=== PATIENT | female | born 1970 | race Caucasian/White ===

== ENCOUNTER → 2024-03-08 11:33 | Outpatient (REF) | payer SELFPAY | LOC: HWRAD 11:33 | PROVIDERS: ATTENDING PHYSICIAN Internal Medicine Cardiovascular Disease; FAMILY PHYSICIAN Family Medicine | DX: R03.0 Elevated blood-pressure reading, without diagnosis of hypertension (principal); E78.00 Pure hypercholesterolemia, unspecified; I36.1 Nonrheumatic tricuspid (valve) insufficiency; I37.1 Nonrheumatic pulmonary valve insufficiency; R01.1 Cardiac murmur, unspecified | CPT/HCPCS: 75571 ==

== ENCOUNTER → 2024-11-01 14:15 | Outpatient (REF) | payer OTHER, SELFPAY | LOC: HWRAD 14:15 | PROVIDERS: ATTENDING PHYSICIAN Urology; FAMILY PHYSICIAN Family Medicine | DX: N39.0 Urinary tract infection, site not specified (principal); R30.0 Dysuria | CPT/HCPCS: 76770 ==